=== PATIENT | male | born 2000 | race Hispanic/Latino ===

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

== ENCOUNTER 2020-02-01 15:35 | Emergency (ER) | payer SELFPAY ==
[2020-02-01] MEDS ORDERED: METHYLPREDNISOLONE SOD SUCC 125MG/2ML VIAL ONE (15:46)
== END 2020-02-01 17:05 | disposition home or self-care (01) ==
LOC: EDH 15:35
DX: L50.0 Allergic urticaria (principal); E13.9 Other specified diabetes mellitus without complications; Z72.0 Tobacco use
CPT/HCPCS: 96374; 99283; J2930

== ENCOUNTER 2021-01-19 02:00 | Emergency (ER) | payer SELFPAY ==
[~2021-01-19] VITALS: Ht 154.9 cm; Wt 54.4 kg
[2021-01-19] MEDS ORDERED: CEFAZOLIN SODIUM 1 GM VIAL IVP STA (02:37)
[2021-01-19] MEDS ORDERED: KETOROLAC 30MG VIAL (30MG/ML) IV ONE (03:00)
[2021-01-19] MEDS ORDERED: LIDOCAINE HCL 1% 10 ML VIAL ONE (04:12)
[2021-01-19] MEDS ORDERED: CEPH500B PO (05:26)
[2021-01-19 05:28] VITALS: BP 112/78
[2021-01-20] MEDS ORDERED: LEVE-43 PO (04:38)
== END 2021-01-19 05:39 | disposition home or self-care (01) ==
LOC: EDH 02:00
DX: S91.011A Laceration without foreign body, right ankle, initial encounter (principal); M54.2 Cervicalgia; Z79.1 Long term (current) use of non-steroidal anti-inflammatories (NSAID); V49.3XXA Car occupant (driver) (passenger) injured in unspecified nontraffic accident, initial encounter; Y93.89 Activity, other specified; Y92.89 Other specified places as the place of occurrence of the external cause; Y99.8 Other external cause status
CPT/HCPCS: 12001; 73610; 96374; 96375; 99285; J0690; J1885; J3490

== ENCOUNTER 2021-01-19 22:43 | Emergency (ER) | payer SELFPAY ==
[~2021-01-19 22:43] MED LIST: CEPH500B PO
[2021-01-20 00:40] LABS: BASOPHILS % (AUTO) 0.2 % (0.0-5.0); EOSINOPHILS % (AUTO) 0.3 % (0.0-8.0); HEMATOCRIT 41.3 % (42-54); LYMPHOCYTES % (AUTO) 4.3 % (21.0-51.0); MEAN CORPUSCULAR HEMOGLOBIN 31.7 pg (27.0-33.0); MEAN CORPUSCULAR HGB CONC 34.6 g/dL (32.0-36.0); MEAN CORPUSCULAR VOLUME 91.6 fL (80-100); MONOCYTES % (AUTO) 6.4 % (3.0-13.0); NEUTROPHILS % (AUTO) 87.9 % (40.0-77.0); PLATELET COUNT (AUTO) 251 K/uL (130-400); POTASSIUM 4.3 mmol/L (3.5-5.1); RED BLOOD CELL COUNT(AUTO) 4.51 MIL/uL (4.50-6.20); RED CELL DISTRIBUTION WIDTH 11.9 % (11.0-15.5); WHITE BLOOD COUNT (AUTO) 26.5 K/uL (4.8-10.8)
[2021-01-20 00:45] LABS: ALBUMIN 3.9 g/dL (3.5-5.0); BILIRUBIN,TOTAL 1.2 mg/dL (0.2-1.0); TOTAL PROTEIN, SERUM 7.3 g/dL (6.0-8.3)
[2021-01-20 01:20] LABS: AMPHET/METH SCREEN,URINE NEGATIVE (NEGATIVE); BARBITURATE SCREEN, URINE NEGATIVE (NEGATIVE); BENZODIAZEPINES SCREEN,URINE NEGATIVE (NEGATIVE); CANNABINOID SCREEN,URINE POSITIVE (NEGATIVE); COCAINE SCREEN,URINE POSITIVE (NEGATIVE); OPIATE SCREEN,URINE NEGATIVE (NEGATIVE); PHENCYCLIDINE SCREEN,URINE NEGATIVE (NEGATIVE)
[2021-01-20 03:00] VITALS: BP 122/56
[2021-01-20] MEDS ORDERED: LEVE-43 PO (04:38)
[2021-01-20] MEDS ORDERED: LEVETIRACETAM 500 MG/5 ML SD VIAL IV ONE ×2 (04:47→04:56)
[2021-01-20] MEDS ORDERED: LEVETIRACETAM 1,500 MG in 0.9%NACL 100ML 100 ML IV SCH (06:00)
== END 2021-01-20 05:49 | disposition home or self-care (01) ==
LOC: EDH 22:43
DX: G40.509 Epileptic seizures related to external causes, not intractable, without status epilepticus (principal); F14.10 Cocaine abuse, uncomplicated; M54.2 Cervicalgia; M54.9 Dorsalgia, unspecified; E11.9 Type 2 diabetes mellitus without complications; Z79.899 Other long term (current) drug therapy; V49.3XXA Car occupant (driver) (passenger) injured in unspecified nontraffic accident, initial encounter; Y93.89 Activity, other specified; Y92.89 Other specified places as the place of occurrence of the external cause; Y99.8 Other external cause status
CPT/HCPCS: 36415; 70450; 80053; 80305; 82550; 85025; J1953

== ENCOUNTER 2021-09-16 10:21 | Emergency (ER) | payer OTHER ==
[~2021-09-16] VITALS: Ht 157.5 cm; Wt 79.4 kg
[~2021-09-16 10:21] MED LIST changes: +LEVE-43 PO
[2021-09-16] MEDS ORDERED: LACTATED RINGERS 1000ML 1,000 ML IV ONE (10:30)
[2021-09-16 10:43] LABS: BASOPHILS % (AUTO) 0.4 % (0.0-5.0); EOSINOPHILS % (AUTO) 0.6 % (0.0-8.0); LYMPHOCYTES % (AUTO) 6.8 % (21.0-51.0); MEAN CORPUSCULAR HEMOGLOBIN 31.6 pg (27.0-33.0); MEAN CORPUSCULAR HGB CONC 34.2 g/dL (32.0-36.0); MEAN CORPUSCULAR VOLUME 92.5 fL (80-100); MONOCYTES % (AUTO) 8.7 % (3.0-13.0); NEUTROPHILS % (AUTO) 83.1 % (40.0-77.0); PLATELET COUNT (AUTO) 255 K/uL (130-400); RED BLOOD CELL COUNT(AUTO) 4.65 MIL/uL (4.50-6.20); RED CELL DISTRIBUTION WIDTH 12.3 % (11.0-15.5); WHITE BLOOD COUNT (AUTO) 7.8 K/uL (4.8-10.8)
[2021-09-16 10:51] LABS: CARBON DIOXIDE 23 mmol/L (21-32); CHLORIDE 103 mmol/L (101-111); CREATININE 1.2 mg/dL (0.5-1.5); GLOMERULAR FILTR. RATE CALC 81 mL/min (>60); GLUCOSE,RANDOM 86 mg/dL (70-105); POTASSIUM 4.5 mmol/L (3.5-5.1); SODIUM SERUM 141 mmol/L (136-145); UREA NITROGEN, BLOOD 15 mg/dL (7-18)
[2021-09-16 10:56] LABS: ALANINE AMINOTRANSFERASE 135 U/L (12-78); ASPARTATE AMINOTRANSFERASE 78 U/L (10-37); BILIRUBIN,TOTAL 0.3 mg/dL (0.2-1.0); PHENYTOIN (DILANTIN) < 0.5 mcg/mL (10.0-20.0); TOTAL PROTEIN, SERUM 8.2 g/dL (6.0-8.3)
[2021-09-16 10:57] LABS: CARBAMAZEPINE (TEGRETOL) < 0.5 mcg/mL (4.0-12.0); PHENOBARBITAL < 1 mcg/mL (15-40)
[2021-09-16 11:05] LABS: VALPROIC ACID < 3 mcg/mL (50-100)
[2021-09-16] MEDS ORDERED: LEVETIRACETAM 500 MG/5 ML SD VIAL IV SCH ×2 (11:30)
[2021-09-16] MEDS ORDERED: LEVE250T PO (12:20)
[2021-09-16 13:05] VITALS: BP 123/78
== END 2021-09-16 13:07 | disposition home or self-care (01) ==
LOC: EDH 10:21
DX: U07.1 COVID-19 (principal); G40.509 Epileptic seizures related to external causes, not intractable, without status epilepticus; E11.9 Type 2 diabetes mellitus without complications
CPT/HCPCS: 36415; 80053; 80156; 80164; 80184; 80185; 85025; 87635; 87804 ×2; 96361; 96365; 99284; C9803; J1953; J7030

== ENCOUNTER 2024-10-13 08:46 | Inpatient (IN) | payer SELFPAY ==
[~2024-10-13] VITALS: Ht 160 cm; Wt 59.0 kg
[~2024-10-13 08:46] MED LIST changes: +LEVE250T PO
--- NOTE | 2024-10-13 08:48 | ERN ---
General Chief Complaint: Hypoglycemia Stated Complaint: HYPOLYCEMIA Time Seen by MD: 08:47 Source: patient, EMS History of Present Illness Initial Comments Patient is a 24-year-old male coming in after he was found hypoglycemic earlier today. Patient does has a history of seizures and per EMS patient was given goes by family members and EMS. Shortly after receiving the glucose patient started coming to. Patient did have two episodes of seizures. Allergies: Coded Allergies: No Known Allergies (Unverified Allergy, Unknown, 03/31/18) No Known Drug Allergies (Unverified Allergy, Unknown, 11/18/18) Home Meds Active Scripts Levetiracetam (Keppra) 250 Mg Tablet, 250 MG PO BID for 10 Days, #20 TAB Prov:MAZIN BEATTY MD 09/16/21 Levetiracetam (Keppra) 500 Mg Tablet, 2 TAB PO BID for 30 Days, #60 TAB 0 Refills Prov:JOAN GRACE MD 01/20/21 Cephalexin Monohydrate (Keflex) 500 Mg Cap, 250 MG PO QID for 5 Days, #20 CAP 0 Refills Prov:JUAN MANUEL GUPTA MD 01/19/21 Past Medical History Past Medical History: Diabetes-Type II, Seizure Past Surgical History: None Social History Social History: Lives alone ROS Dictation CONSTITUTIONAL: No chills, no fever, no weakness, no diaphoresis, no malaise. HEAD/FACE: No signs of trauma. EENT: No eye pain, no blurred vision, no tearing, no double vision, no ear pain, no ear discharge, no nose pain, no nasal congestion, no throat pain, no throat swelling, no mouth pain. RESPIRATORY: No cough, no orthopnea, no SOB, no stridor, no wheezing. CARDIOVASCULAR: No chest pain, no edema, no palpitations, no syncope. GASTROINTESTINAL/ABDOMINAL: No abdominal pain, no constipation, no diarrhea, no nausea, no vomiting. GENITOURINARY: No abnormal discharge, no dysuria, no frequent urination, no hematuria. No complaints of pain in the genitals. MUSCULOSKELETAL: No back pain, no gout, no joint pain, no joint swelling, no muscle pain, no muscle stiffness, no neck pain. INTEGUMENTARY: No change in color, no change in hair/nails, no dryness, no lesion, no lumps, no rash. NEUROLOGICAL/PSYCH: No anxiety, not depressed, no emotional problem, no headache, no numbness, no pre-existing deficit, no history of seizures, no tremors, no weakness. HEMATOLOGIC/LYMPHATIC: Not anemic, no history of blood clots, no apparent bleeding, no bruising, glands not swollen. All Systems Negative, Except as Noted. Physical Exam Physical Exam Dictation VITAL SIGNS: Reviewed. GENERAL APPEARANCE: Alert, oriented x3, no acute distress, obese. HEAD AND FACE: Non-traumatic. EYES: PERRL, pink conjunctivas, eyelid no trauma, anterior chamber clear. EARS: Pinnas intact and no signs of trauma or erythema. Ear canals clear and no discharge. TMs no erythema. NOSE: No discharge, no bleeding. OROPHARYNX: Mouth normal, teeth no caries, tongue pink. Pharynx clear, no erythema. Tonsils no exudates, no abscesses noted. Mucous membrane moist. NECK: Supple, non-tender, no thyromegaly, no masses, no JVD, no bruits. BREAST: Deferred. CHEST: No tenderness, no crepitus, no paradoxical movement, no retractions. LUNGS: Clear, well-ventilated, symmetric, no rales, no wheezing, no rhonchi, no stridor, good breath sounds bilaterally. HEART: Regular rate, regular rhythm, no murmur, no gallops. VASCULAR: No peripheral edema. ABDOMEN: Soft, positive bowel sounds, nondistended, no guarding, nontender, no rebound, no masses no hepatomegaly, no splenomegaly, no Green's sign, no hernias. RECTAL: Deferred. GENITAL: Deferred. NEUROLOGICAL: Normal speech, gross motor function intact, gross sensory function intact. MUSCULOSKELETAL: Neck nontender, full range of motion, back nontender, full range of motion. EXTREMITIES: Nontender, full range of motion. SKIN: Color pink, dry, no turgor, no rash, no lacerations, no abrasions, no contusions. LYMPHATICS: Deferred. Results Laboratory and Microbiology Lab and Micro Result Laboratory Tests Test 10/13/24 08:50 10/13/24 08:54 10/13/24 09:40 Whole Blood Glucose 140 MG/DL (70-110) H 35 MG/DL (70-110) #*L White Blood Count 11.4 K/uL (4.8-10.8) H Red Blood Count 4.63 MIL/uL (4.50-6.20) Hemoglobin 14.5 g/dL (14.0-18.0) Hematocrit 42.6 % (42-54) Mean Corpuscular Volume 92.0 fL (79-99) Mean Corpuscular Hemoglobin 31.3 pg (27.0-33.0) Mean Corpuscular Hemoglobin Concent 34.0 g/dL (32.0-36.0) Red Cell Distribution Width 11.6 % (11.0-15.5) Platelet Count 282 K/uL (130-400) Mean Platelet Volume 11.1 fL (7.5-10.5) H Immature Granulocyte % (Auto) 0.4 % (0-1) Neutrophils (%) (Auto) 88.1 % (40.0-77.0) H Lymphocytes (%) (Auto) 7.8 % (21.0-51.0) L Monocytes (%) (Auto) 3.2 % (3.0-13.0) Eosinophils (%) (Auto) 0.2 % (0.0-8.0) Basophils (%) (Auto) 0.3 % (0.0-5.0) Neutrophils # (Auto) 10.0 K/uL (1.8-7.7) H Lymphocytes # (Auto) 0.9 K/uL (1.0-4.8) L Monocytes # (Auto) 0.4 K/uL (0.1-1.0) Eosinophils # (Auto) 0.02 K/uL (0.00-0.70) Basophils # (Auto) 0.03 K/uL (0.00-0.20) Absolute Immature Granulocyte (auto 0.05 K/uL (0-1) Nucleated Red Blood Cells 0.0 % (0.0-0.19) White Cell Morphology Comment See comments Sodium Level 136 mmol/L (136-145) Potassium Level 3.8 mmol/L (3.5-5.1) Chloride Level 103 mmol/L (101-111) Carbon Dioxide Level 28 mmol/L (21-32) Blood Urea Nitrogen 11 mg/dL (7-18) Creatinine 0.9 mg/dL (0.5-1.3) Glomerular Filtration Rate Calc 122 mL/min (>90) Random Glucose 133 mg/dL (70-105) H Total Calcium 9.0 mg/dL (8.5-10.1) Bedside Glucose Comment Notified Nurse Labs Reviewed?: Yes MDM MDM: Differential diagnosis: History of diabetes mellitus, hypoglycemia, history of seizures, Rationale: Tests considered and ordered secondary to shared decision making include: Previous outside records reviewed: Old ER visits. Risk of complication and/or morbidity or mortality of patient management: None Medications-Per medication reconciliation Need for hospitalization: Patient does meet criteria for hospitalization. Need for emergency major/minor surgery: No There are no social concerns with this patient. Prescription drug management Prescriptions will include symptomatic care Patient's prior external medical records from other ER visits were reviewed by me as indicated. Prior testing and results from previous visits were reviewed. Prior tests were taken into account with medical decision making and resource utilization, independent historian/historians were used to obtain complete medical history. I independently interpreted the test that were performed, results were reviewed by me and considered findings on radiology if ordered. Medical management and examination interpretation discussions were had by me with other qualified healthcare professionals as indicated for the patient's care. Patient is a 24-year-old male brought in by EMS secondary the hypoglycemic event. Patient received deep 50 via EMS shortly after that his glucose started drop in the again patient received another D50 in the ER and was placed on a D10 drip. Patient will be admitted under the care of hospitalist group for ongoing management. ED Course Orders Procedure Category Date Status Time Cbc With Differential LAB 10/13/24 Complete 08:48 Urinalysis Profile LAB 10/13/24 Logged 08:48 12 Lead Ekg Tracing- EKG 10/13/24 Logged Technical 08:48 0.9%Nacl 1000ml (Ns PHA 10/13/24 Complete 1000ml) 09:00 Chest 1vw RAD 10/13/24 Resulted 08:48 Basic Metabolic Panel LAB 10/13/24 Complete 08:48 Drug Screen Urine LAB 10/13/24 Logged 08:48 Dextrose 10%-Water... PHA 10/13/24 Complete W/Sodium Cl 4meq/M 09:43 Dextrose 50%-Water PHA 10/13/24 Complete (D50w) 09:43 Dextrose 50%-Water PHA 10/13/24 Complete (D50w) 10:00 Current Medications Medications (Trade) Dose Ordered Sig/Brady Route PRN Reason Start Time Stop Time Status Last Admin Dose Admin Dextrose (D50w) 25 ml ONCE ONCE IV 10/13/24 10:00 10/13/24 10:01 DC Dextrose (D50w) 50 ml STK-MED ONCE IV 10/13/24 09:43 10/13/24 09:44 DC Sodium Chloride 1,000 ml @ 0 mls/hr ONCE ONCE IV 10/13/24 09:00 10/13/24 09:01 DC 10/13/24 08:59 Sodium Chloride 77 meq/Dextrose 1,000 ml @ 0 mls/hr Q0M STAT IV 10/13/24 09:43 10/13/24 09:48 DC Vital Signs Date Time Temp Pulse Resp B/P (MAP) Pulse Ox O2 Delivery O2 Flow Rate FiO2 10/13/24 09:00 97.9 100 22 127/88 100 Room Air* 0 21 10/13/24 08:47 97.9 105 20 126/92 96 Room Air 0 DX & DISP Disposition: Inpatient Decision to Admit Time: 10:11 Departure Impression: Primary Impression: Hypoglycemia Additional Impressions: Cocaine abuse, History of seizures Condition: Stable Referrals: SELF,REFERRAL (PCP) MAZIN BEATTY MD Oct 13, 2024 08:48
[2024-10-13] MEDS: 0.9%NACL 1000ML 1,000 ML IV ONE (08:59)
[2024-10-13 09:04] LABS: IMMATURE GRANULOCYTE ABSOLUTE 0.05 K/uL (0-1); NUCLEATED RED BLOOD CELLS 0.0 % (0.0-0.19); PLATELET COUNT (AUTO) 282 K/uL (130-400); RED BLOOD CELL COUNT(AUTO) 4.63 MIL/uL (4.50-6.20); RED CELL DISTRIBUTION WIDTH 11.6 % (11.0-15.5); WHITE BLOOD COUNT (AUTO) 11.4 K/uL (4.8-10.8)
--- NOTE | 2024-10-13 09:07 | NUR ---
as per ems team, patient had 3 tonic clonic seizures prior to arrival to ed, patient in postictal stage resting in bed, call light in reach. patient states he takes keppra at home but hasnt taken in past month, dr duff aware
[2024-10-13 09:15] LABS: CREATININE 0.9 mg/dL (0.5-1.3); GLOMERULAR FILTR. RATE CALC 122.0 mL/min (>90); GLUCOSE,RANDOM 133.0 mg/dL (70-105); SODIUM SERUM 136.0 mmol/L (136-145); UREA NITROGEN, BLOOD 11.0 mg/dL (7-18)
--- NOTE | 2024-10-13 09:40 | HMCIMG ---
CHEST 1VW REASON: cp COMPARISON: Prior chest radiograph from 01/08/2019 is available. FINDINGS: Single view of the chest was obtained. Lungs are clear. Heart size is normal. There is no pulmonary vascular congestion. Mediastinum and bony thorax appear unremarkable. IMPRESSION: No acute cardiopulmonary process and unchanged from prior study
[2024-10-13] MEDS ORDERED: SODIUM CL 4MEQ/ML 30ML 77 MEQ in DEXTROSE 10%-WATER 980.75 ML IV STA (09:43)
[2024-10-13] MEDS: DEXTROSE 50%-WATER 50 ML DISP.SYRIN IV ONE (09:55)
[2024-10-13] MEDS ORDERED: DEXTROSE 50%-WATER 50 ML DISP.SYRIN IV ONE (10:00)
[2024-10-13] MEDS ORDERED: 0.9%NACL 1000ML 1,000 ML IV SCH (10:30)
[2024-10-13] MEDS ORDERED: GLUCAGON 1MG KIT 1 MG ML IM PRN (10:30)
[2024-10-13] MEDS ORDERED: SODIUM CL 4MEQ/ML 30ML 154 MEQ in DEXTROSE 10%-WATER 961.5 ML IV SCH (10:30)
[2024-10-13] MEDS ORDERED: DEXTROSE 50%-WATER 50 ML DISP.SYRIN IV PRN (10:30)
[2024-10-13 10:35] LABS: APPEARANCE,URINE CLEAR (CLEAR); GLUCOSE, URINE (UA) >=1000 mg/dL (NEGATIVE); LEUKOCYTE ESTERASE ,URINE NEGATIVE Leu/uL (NEGATIVE); NITRATE,URINE NEGATIVE (NEGATIVE); OCCULT BLOOD,URINE NEGATIVE (NEGATIVE)
[2024-10-13 10:36] LABS: AMPHET/METH SCREEN,URINE POSITIVE (NEGATIVE); BARBITURATE SCREEN, URINE NEGATIVE (NEGATIVE); CANNABINOID SCREEN,URINE POSITIVE (NEGATIVE); COCAINE SCREEN,URINE POSITIVE (NEGATIVE)
[2024-10-13 10:37] LABS: ADD UA MICROSCOPIC YES
--- NOTE | 2024-10-13 10:49 | NUR ---
BLOOD GLUCOSE AT 172
--- NOTE | 2024-10-13 10:49 | NUR ---
NOTIFIED DR CLARK IN REGARDS TO PATIENT LEAVING AMA AND HE IS AWARE
[2024-10-13 10:50] VITALS: BP 112/79; PULSE 106; RESP 20; TEMP 98.2; O2SAT 100
--- NOTE | 2024-10-13 10:58 | NUR ---
AMA PATIENT LEFT AMA, I EXPLAINED TO PATIENT RISKS ABOUT LEAVING AMA AND HE IS AWARE GOT AMA FORM SIGNED, PATIENT AMBULATED OUT OF ED, NO COMPLICATIONS
--- NOTE | 2024-10-13 11:05 | EKG ---
[facility] Test Date: 2024-10-13 Test Time: 08:45:04 Pat Name: MARYSOL WISDOM Department: [facility] Patient ID: [facility] [id number] Room: ED 01 Gender: M [employer]: 0699 : 2000 Requested By: MAZIN BEATTY Order Number: [id number] Reading MD: Fam Gallegos Measurements Intervals Hanna Rate: 108 P: 58 WY: 138 QRS: -47 QRSD: 81 T: 77 QT: 333 QTc: 447 Interpretive Statements Sinus tachycardia Left anterior fascicular block No previous ECG available for comparison Electronically Signed On 10-15-2024 00:02:56 CDT by Fam Gallegos Please click the below link to view image of tracing.
[2024-10-13] MEDS ORDERED: FAMOTIDINE 20MG VIAL IV SCH (21:00)
[2024-10-14] MEDS ORDERED: ENOXAPARIN SODIUM 40 MG/0.4 ML SYRINGE SQ SCH (09:00)
== END 2024-10-13 10:55 | disposition left against medical advice (07) | DRG 639 ==
LOC: EDH 08:46 → EDHIP 08:47
PROVIDERS: ADMIT Family Medicine; ATTEND Family Medicine
DX: E11.649 Type 2 diabetes mellitus with hypoglycemia without coma (principal); F14.10 Cocaine abuse, uncomplicated; R56.9 Unspecified convulsions
CPT/HCPCS: 36415; 71045; 80048; 80305; 81001; 82948; 85025; 93005; 99285; G0378; J7070